=== PATIENT | male | born 1990 | race Caucasian/White ===

== ENCOUNTER 2023-12-26 16:07 | Emergency (ER) | payer MEDICAID ==
[~2023-12-26] VITALS: Ht 185.4 cm; Wt 79.0 kg
[2023-12-26 16:08] VITALS: O2SAT 98
[2023-12-26 16:22] VITALS: BP 148/83; PULSE 99; RESP 18; TEMP 37.05852; O2SAT 97
[2023-12-26] MEDS: SODIUM CHLORIDE 0.9% 1,000 ML IV ONE (16:26)
[2023-12-26] MEDS: LEVETIRACETAM 500MG PREMIX 100 ML IV ONE (16:26)
== END 2023-12-26 16:49 | disposition left against medical advice (07) ==
LOC: ER 16:07
DX: R56.9 Unspecified convulsions (principal)
CPT/HCPCS: 99283; J7030; Z7610 ×3